=== PATIENT | female | born 1945 | race Caucasian/White ===

== ENCOUNTER 2018-01-07 15:33 | Emergency (ER) | END 2018-01-07 19:24 | disposition home or self-care (01) ==

== ENCOUNTER 2018-11-23 13:53 | Emergency (ER) | payer OTHER, MEDICAID ==
[~2018-11-23] VITALS: Ht 172.7 cm; Wt 75.0 kg
[~2018-11-23 13:53] MED LIST: ATOR20TA38 PO; FURO20TA3 PO; ISOS30TA67 PO; METF100010 PO; METO-335 PO; VALS80TA2 PO
[2018-11-23] MEDS ORDERED: ONDANSETRON (ODT) 4 MG TAB ODT STA (13:57)
[2018-11-23] MEDS ORDERED: MECLIZINE 12.5 MG TAB PO ONE (14:00)
[2018-11-23] MEDS ORDERED: LORAZEPAM 1 MG TAB PO ONE (14:00)
[2018-11-23] MEDS ORDERED: HYDR12.53 ORAL (14:15)
[2018-11-23] MEDS ORDERED: CARV3.1260 ORAL (14:15)
[2018-11-23 14:16] VITALS: Ht 172.7 cm; Wt 75.0 kg
[2018-11-23] MEDS ORDERED: ACETAMINOPHEN 325 MG TAB PO ONE (15:00)
[2018-11-23] MEDS ORDERED: MECL12.574 PO (15:11)
[2018-11-23] MEDS ORDERED: LORA1TAB PO ×2 (15:11→15:38)
--- NOTE | 2018-11-23 15:13 | ERD ---
ER Documentation Chief Complaint Chief Complaint PT BIB RA with c/o dizziness and nausea since early this morning. HPI Patient is a 73-year-old female with coronary disease, hypertension, and diabetes who presents with dizziness. The patient was brought in by ambulance. She has felt dizzy since 11 AM. She feels like the room is spinning. She says it is worse when she moves her head or looks up. The patient said that this started while she was watching TV. She is a history of similar happening in the past. She tried her blood pressure medicines today. ROS All systems reviewed and are negative except as per history of present illness. Medications Home Meds Active Scripts Lorazepam* (Lorazepam*) 1 Mg Tablet, 1 MG PO Q8, #6 TAB Prov:DANIEL DEVINE MD 11/23/18 Meclizine Hcl* (Antivert*) 12.5 Mg Tab, 25 MG PO Q6H PRN for DIZZINESS, #20 TAB Prov:DANIEL DEVINE MD 11/23/18 Reported Medications Hydrochlorothiazide (Hydrochlorothiazide) 12.5 Mg Capsule, 1 CAP ORAL DAILY 11/23/18 Carvedilol* (Carvedilol*) 3.125 Mg Tablet, 1 TAB ORAL BID 11/23/18 Valsartan* (Diovan*) 80 Mg Tablet, 80 MG PO DAILY, TAB 01/07/18 Metoprolol Succinate* (Toprol XL*) 25 Mg Tab.sr.24h, 25 MG PO DAILY, #30 TAB 01/07/18 Atorvastatin Calcium* (Atorvastatin Calcium*) 20 Mg Tablet, 20 MG PO QHS, #30 TAB 01/07/18 Furosemide* (Furosemide*) 20 Mg Tablet, 20 MG PO DAILY, #60 TAB 01/07/18 Isosorbide Mononitrate* (Isosorbide Mononitrate*) 30 Mg Tab.er.24h, 30 MG PO DAILY, TAB 01/07/18 Metformin Hcl* (Metformin Hcl*) 1,000 Mg Tablet, 1000 MG PO WITH BREAKFAST DINNE, #60 TAB 01/07/18 Allergies Allergies: Coded Allergies: codeine (Verified Allergy, Unknown, 01/07/18) morphine (Verified Allergy, Unknown, 01/07/18) PMhx/Soc History of Surgery: Yes (heart stent, valve replacement) Anesthesia Reaction: No Hx Neurological Disorder: No Hx Respiratory Disorders: No Hx Cardiac Disorders: No Hx Psychiatric Problems: No Hx Miscellaneous Medical Probl: Yes (dm, htn, high cholesterol, vertigo) Hx Alcohol Use: Yes (socially) Hx Substance Use: No Hx Tobacco Use: No Smoking Status: Never smoker FmHx Family History: No diabetes Physical Exam Vitals Vital Signs Date Temp Pulse Resp B/P (MAP) Pulse Ox O2 O2 Flow FiO2 Time Delivery Rate 11/23/18 97.7 81 20 152/72 98 14:16 (98) Physical Exam Const: Mild distress secondary to dizziness Head: Atraumatic Eyes: Normal Conjunctiva ENT: Normal External Ears, Nose and Mouth. Neck: Full range of motion. No meningismus. Resp: Clear to auscultation bilaterally Cardio: Regular rate and rhythm, no murmurs Abd: Soft, non tender, non distended. Normal bowel sounds Skin: No petechiae or rashes Back: No midline or flank tenderness Ext: No cyanosis, or edema Neur: Awake and alert, cranial nerves II through XII are intact, strength is 5 out of 5 in all 4 extremities, no slurred speech, negative pronator drift, symptoms of room spinning are exacerbated with head movement Psych: Normal Mood and Affect Results 24 hrs Laboratory Tests Test 11/23/18 14:15 Bedside Glucose 249 mg/dL Current Medications Medications Dose Sig/Kvng Start Time Status Last (Trade) Ordered Route PRN Stop Time Admin Dose Reason Admin Meclizine 25 mg ONCE ONCE 11/23/18 DC 11/23/18 HCl PO 14:00 14:05 (Antivert) 11/23/18 14:01 Lorazepam 1 mg ONCE ONCE 11/23/18 DC 11/23/18 (Ativan) PO 14:00 14:05 11/23/18 14:01 Ondansetron 4 mg ONCE STAT 11/23/18 DC 11/23/18 HCl (Zofran ODT 13:57 14:05 Odt) 11/23/18 13:58 650 mg ONCE ONCE 11/23/18 DC 11/23/18 Acetaminophen PO 15:00 14:58 (Tylenol 11/23/18 15:01 Tab) Procedures/MDM EKG read by me: Rate/Rhythm: Regular rate and rhythm at a rate of 89 Intervals: Normal Impression: No evidence of ischemia or arrhythmia Patient is a 73-year-old female who presents with dizziness and the feeling of room spinning. I believe she is having acute vertigo. I doubt stroke. I doubt intracranial mass or hemorrhage. Her neurologic exam is consistent with vertigo and does not show any focal deficits consistent with stroke or mass. The patient was given meclizine and Ativan and feels better. She will be discharged and will need to follow-up with her primary doctor within 24-48 hours. She can return sooner for any worsening symptoms. Departure Diagnosis: Primary Impression: Vertigo Additional Impression: Dizziness Condition: Fair Patient Instructions: Dizziness, Unk Cause, Vertigo, Unspecified Referrals: Your doctor Additional Instructions: Llame al doctor MAANA y michaelle keanu RUSLAN PARA DENTRO DE 1-2 SCHAFER.Dgale a la secretaria que nosotros le instruimos hacer esta ruslan.Avise o llame si benavides condicin se empeora antes de la ruslan. Regresa aqui si peor o no mejor. DANIEL DEVINE MD Nov 23, 2018 15:13
[2018-11-23 15:47] VITALS: BP 129/72; PULSE 76; RESP 16
[2018-11-23] MEDS ORDERED: IBUPROFEN 800 MG TAB PO ONE (16:00)
== END 2018-11-23 15:54 | disposition home or self-care (01) ==
LOC: E/R 13:53
DX: R42 Dizziness and giddiness (principal); I10 Essential (primary) hypertension; E11.9 Type 2 diabetes mellitus without complications; I25.10 Atherosclerotic heart disease of native coronary artery without angina pectoris; Z79.84 Long term (current) use of oral hypoglycemic drugs; Z98.61 Coronary angioplasty status
CPT/HCPCS: 82962; 93005